=== PATIENT | male | born 1995 ===

== ENCOUNTER 2023-02-04 10:15 | Emergency (ER) | payer SELFPAY ==
[~2023-02-04] VITALS: Ht 177.8 cm; Wt 86.4 kg
[2023-02-04 10:31] VITALS: TEMP 97.9
[2023-02-04] MEDS ORDERED: IBUPROFEN 600 MG TABLET PO ONE (11:00)
[2023-02-04] MEDS ORDERED: LIDOCAINE 5% TRANSDERMAL PATCH TD ONE (11:00)
[2023-02-04] MEDS ORDERED: ACETAMINOPHEN 500 MG TABLET PO ONE (11:00)
[2023-02-04] MEDS ORDERED: ACET-3385 PO (11:16)
[2023-02-04] MEDS ORDERED: LIDO700A15 TP (11:16)
[2023-02-04] MEDS ORDERED: IBUP-1492 PO (11:16)
[2023-02-04 11:28] VITALS: BP 136/82; PULSE 92; RESP 16
== END 2023-02-04 12:10 | disposition home or self-care (01) ==
LOC: EMS 10:29
DX: S39.012A Strain of muscle, fascia and tendon of lower back, initial encounter (principal); F17.210 Nicotine dependence, cigarettes, uncomplicated; Z90.49 Acquired absence of other specified parts of digestive tract; X58.XXXA Exposure to other specified factors, initial encounter; Y93.89 Activity, other specified; Y92.89 Other specified places as the place of occurrence of the external cause; Y99.8 Other external cause status
CPT/HCPCS: 99283